=== PATIENT | female | born 1970 | race Caucasian/White ===

== ENCOUNTER 2023-05-20 08:38 | Emergency (ER) | payer OTHER, SELFPAY ==
[2023-05-20 08:46] VITALS: BP 134/89; PULSE 85; RESP 16; TEMP 36.4; O2SAT 95; BMI 26.5
--- NOTE | 2023-05-20 08:53 | XR_ITS ---
The [address] [address] Patient Name: BRUCE KRISHNAMURTHY MRN: [id number] date: 1970 Sex: F Assigned Patient Location: ER Current Patient Location: ER Accession/Order Number: [id number] Exam Date: 05/20/2023 09:11 Report Date: 05/20/2023 09:27 At the request of: DENISE LUGO Procedure: XR knee LT 4V Exam: Radiographs: XR knee LT 4V Reason for exam: left knee pain Comparison: None IMPRESSION: Mild left knee degenerative change. Left knee is otherwise unremarkable Electronically authenticated by: TOMEKA SCHWARTZ Date: 05/20/2023 09:27
--- NOTE | 2023-05-20 09:11 | ED.LOWEXI1 ---
HPI - Extremity Injury (Lower) General Chief Complaint: Extremity Injury, Lower Stated Complaint: LOWER EXTREMITY PAIN LEFT KNEE Time Seen by Provider: 05/20/23 08:53 Source: patient Source comment: patient Mode of arrival: walk-in Limitations: no limitations History of Present Illness HPI Narrative: left knee pain since last year. Did a lot of walking yesterday and this morning had increased left knee pain. No swelling. Nothing taken for the pain. No known injury. has not been evaluated by her PCP for this. Related Data Home Medications Medication Instructions Recorded Confirmed albuterol sulfate 90 mcg/actuation inhalation 05/20/23 aerosol inhaler (Ventolin HFA) aripiprazole 10 mg tablet mg 05/20/23 buspirone 15 mg tablet mg 05/20/23 naloxone 4 mg/actuation nasal spray intranasal 05/20/23 sertraline 25 mg tablet mg 05/20/23 sertraline 50 mg tablet mg 05/20/23 trazodone 100 mg tablet mg 05/20/23 Previous Rx's Medication Instructions Recorded nabumetone 750 mg tablet 750 mg PO BID PRN pain #20 tabs 05/20/23 Allergies Allergy/AdvReac Type Severity Reaction Status Date / Time No Known Drug Allergies Allergy Verified 05/20/23 09:24 [facility] Social History Smoking status: Current every day smoker Exam Narrative Exam Narrative: Nurses notes and vital signs reviewed and patient is not hypoxic. afebrile General: Well-appearing and in no apparent distress. Skin: Warm, dry, no pallor noted. No rash. Cardiovascular: normal peripheral perfusion. Respiratory: No accessory muscle use or respiratory distress. Musculoskeletal: left knee without effusion, erythema or warmth. No pain with patellar manipulation. Some tenderness to the infrapatellar tendon but no laxity or stepoff. normal ROM. no calf or popliteal tenderness, no lower extremity edema/swelling. Neurological: A&O x4. No cranial nerve dysfunction observed. No truncal ataxia. Moves all extremities. Sensation intact. Psychiatric: Cooperative and interactive. Normal mood and affect. Constitutional Vital Signs - 24 hr 05/20/23 08:46 Temperature 97.5 F L Pulse Rate [Monitor] 85 Respiratory Rate 16 Blood Pressure [Right Arm] 134/89 H Pulse Oximetry 95 Oxygen Delivery Method Room Air Course Vital Signs Vital signs: Vital Signs Temperature 97.5 F L 05/20/23 08:46 Pulse Rate 85 05/20/23 08:46 Respiratory Rate 16 05/20/23 08:46 Blood Pressure 134/89 H 05/20/23 08:46 Pulse Oximetry 95 05/20/23 08:46 Oxygen Delivery Method Room Air 05/20/23 08:46 Temperature 97.5 F L 05/20/23 08:46 Pulse Rate 85 05/20/23 08:46 Respiratory Rate 16 05/20/23 08:46 Blood Pressure 134/89 H 05/20/23 08:46 Pulse Oximetry 95 05/20/23 08:46 Oxygen Delivery Method Room Air 05/20/23 08:46 MDM - Extremity Injury (Lower) MDM Narrative Medical decision making narrative: no trauma or known injury. XRays show degenerative changes. Pain likely due to degenerative changes coupled with increased activity. results discussed with patient. FREDDY wrap applied to the patient's left knee by ED nurse and patient was neurovascularly intact distally afterward. Patient discharged home with prescription for Relafen and instructed to see her PCP for follow up. Imaging Data xr knee: Radiologist's impression: Patient Name: BRUCE KRISHNAMURTHY MRN: [id number] date: 1970 Sex: F Assigned Patient Location: ER Current Patient Location: ER Accession/Order Number: [id number] Exam Date: 05/20/2023 09:11 Report Date: 05/20/2023 09:27 At the request of: DENISE LUGO Procedure: XR knee LT 4V Exam: Radiographs: XR knee LT 4V Reason for exam: left knee pain Comparison: None IMPRESSION: Mild left knee degenerative change. Left knee is otherwise unremarkable Electronically authenticated by: TOMEKA SCHWARTZ Date: 05/20/2023 09:27 Discharge Plan Discharge Chief Complaint: Extremity Injury, Lower Clinical Impression: Acute pain of left knee, Osteoarthritis of left knee Time of Disposition Decision: 09:37 Prescriptions / Home Meds: New nabumetone 750 mg tablet 750 mg PO BID PRN (Reason: pain) Qty: 20 0RF No Action trazodone 100 mg tablet sertraline 25 mg tablet albuterol sulfate [Ventolin HFA] 90 mcg/actuation HFA aerosol inhaler INHALATION sertraline 50 mg tablet buspirone 15 mg tablet aripiprazole 10 mg tablet naloxone 4 mg/actuation spray,non-aerosol INTRANASAL Instructions: Osteoarthritis (ED), Knee Pain (ED) Stand Alone Forms: Portal Instructions Referrals: Physician,Non-Staff, MD [Primary Care Provider] - 1 week
== END 2023-05-20 09:50 | disposition home or self-care (01) ==
PROVIDERS: Emergency Provider Emergency Medicine
DX: M25.562 Pain in left knee (principal); M17.12 Unilateral primary osteoarthritis, left knee; Z79.899 Other long term (current) drug therapy
CPT/HCPCS: 73564; 99283